=== PATIENT | female | born 1980 | race Asian ===

== ENCOUNTER 2017-01-21 20:25 | Emergency (ER) | payer MEDICAID ==
[~2017-01-21] VITALS: Ht 152.4 cm; Wt 65.0 kg
[2017-01-21] MEDS ORDERED: PROPARACAINE OPHTH 0.5%, 15ML ONE (20:45)
[2017-01-21] MEDS ORDERED: FLUORESCEIN OPHTHALMIC 1 MG STRIP ONE (20:45)
[2017-01-21] MEDS ORDERED: IBUPROFEN 200 MG TABLET ONE (21:18)
[2017-01-21] MEDS ORDERED: IBUPROFEN 200 MG TABLET PO ONE (21:30)
[2017-01-21 21:36] VITALS: BP 115/75
== END 2017-01-21 21:38 | disposition home or self-care (01) ==
LOC: ED 21:15
DX: H10.021 Other mucopurulent conjunctivitis, right eye (principal); E11.9 Type 2 diabetes mellitus without complications
CPT/HCPCS: 99283

== ENCOUNTER 2017-01-24 12:15 | Emergency (ER) | payer MEDICAID ==
[~2017-01-24] VITALS: Ht 152.4 cm; Wt 67.0 kg
[2017-01-24] MEDS ORDERED: KETOROLAC 30 MG/1 ML ONE (12:57)
[2017-01-24] MEDS ORDERED: LORazepam 2 MG/ML, 1ML ONE (12:58)
[2017-01-24] MEDS ORDERED: SODIUM CHLORIDE 0.9% 1,000ML IVBOLUS ONE ×2 (13:00→14:30)
[2017-01-24] MEDS ORDERED: KETOROLAC 30 MG/1 ML IVPush ONE (13:00)
[2017-01-24] MEDS ORDERED: LORazepam 1MG TABLET PO ONE (13:00)
[2017-01-24] MEDS ORDERED: LORazepam 1MG TABLET ONE (13:09)
[2017-01-24 13:22] LABS: BLOOD UREA NITROGEN 9 mg/dL (7-18)
[2017-01-24 13:27] LABS: ASPARTATE AMINO TRANSFERASE 8 U/L (15-37)
[2017-01-24 13:29] LABS: IS PT STATUS REG ER OR PRE ER? YES
[2017-01-24] MEDS ORDERED: BACITRACIN ZINC OINT 500U/GM, 0.9 GM ONE (14:22)
[2017-01-24 14:29] LABS: PH, VENOUS 7.331 pH (7.320-7.420)
[2017-01-24 15:22] VITALS: BP 100/65
== END 2017-01-24 15:46 | disposition home or self-care (01) ==
LOC: ED 12:57
DX: S20.219A Contusion of unspecified front wall of thorax, initial encounter (principal); S40.011A Contusion of right shoulder, initial encounter; I10 Essential (primary) hypertension; E11.9 Type 2 diabetes mellitus without complications; J45.909 Unspecified asthma, uncomplicated; W18.30XA Fall on same level, unspecified, initial encounter; Y93.01 Activity, walking, marching and hiking; Y99.8 Other external cause status; Y92.410 Unspecified street and highway as the place of occurrence of the external cause
CPT/HCPCS: 36415; 71010; 73030; 80053; 81001; 82010; 82803; 82962; 84484; 85025; 87086; 93005; 96361; 96374; 99285; J1885; J7030

== ENCOUNTER 2017-08-05 11:05 | Emergency (ER) | payer MEDICAID ==
[~2017-08-05] VITALS: Ht 149.9 cm; Wt 66.0 kg
[2017-08-05] MEDS ORDERED: SODIUM CHLORIDE 0.9% 1,000 ML IV ONE (11:16)
[2017-08-05] MEDS ORDERED: ACETAMINOPHEN 500 MG TABLET PO ONE (11:30)
[2017-08-05] MEDS ORDERED: SODIUM CHLORIDE FLUSH 10ML SYR IVF ONE (11:30)
[2017-08-05] MEDS ORDERED: SODIUM CHLORIDE 0.9% 1,000ML IVBOLUS ONE (11:30)
[2017-08-05] MEDS ORDERED: ACETAMINOPHEN 500 MG TABLET ONE (11:45)
[2017-08-05 11:46] LABS: RAPID INFLUENZA A POSITIVE (Negative); RAPID INFLUENZA B Negative (Negative)
[2017-08-05 12:04] LABS: BASOPHILS # (AUTO) 0.04 x10^3/uL (0-0.1); BASOPHILS % (AUTO) 1 % (0-1); EOSINOPHILS # (AUTO) 0.08 x10^3/uL (0-0.4); EOSINOPHILS % (AUTO) 1 % (1-7); LYMPHOCYTES # (AUTO) 0.45 x10^3/uL (1-3.4); LYMPHOCYTES % (AUTO) 6 % (22-44); MD NO; MEAN CORPUSCULAR HEMOGLOBIN 30.5 pg (27.0-34.8); MEAN CORPUSCULAR HGB CONC 33.6 g/dL (32.4-35.8); MEAN CORPUSCULAR VOLUME 90.8 fL (80-100); MEAN PLATELET VOLUME 8.8 fL (7.4-10.4); MONOCYTES # (AUTO) 1.03 x10^3/uL (0.2-0.8); MONOCYTES % (AUTO) 14 % (2-9); NEUTROPHILS # (AUTO) 5.96 x10^3/uL (1.8-6.8); NEUTROPHILS % (AUTO) 79 % (42-75); PLATELET COUNT 289 x10^3/uL (130-400); RED BLOOD COUNT 4.42 x10^6/uL (3.82-5.3); RED CELL DISTRIBUTION WIDTH 12.5 % (9.6-15.2)
[2017-08-05 12:14] LABS: ALANINE AMINOTRANSFERASE 14 U/L (12-78); ALBUMIN 2.9 g/dL (3.4-5.0); ANION GAP 10 mmol/L (5-15); CALCIUM 7.8 mg/dL (8.5-10.1); CHLORIDE 107 mmol/L (98-107); CREATININE 0.72 mg/dL (0.55-1.02)
[2017-08-05 12:18] LABS: ALKALINE PHOSPHATASE 64 U/L (45-117); BILIRUBIN,TOTAL 0.2 mg/dL (0.2-1.0); TOTAL PROTEIN 6.4 g/dL (6.4-8.2)
[2017-08-05 12:32] LABS: INTERNATIONAL NORMALIZED RATIO 0.96 (0.93-1.1); PARTIAL THROMBOPLASTIN TIME 27 Seconds (25-31); PROTHROMBIN TIME 9.9 Seconds (9.6-11.5)
[2017-08-05 12:33] LABS: D-DIMER < 0.19 ug/mlFEU (0.00-0.52)
[2017-08-05 14:14] LABS: MICROSCOPIC NOT IND
[2017-08-05 14:25] LABS: CULTURE INDICATED? NO
[2017-08-05 15:00] VITALS: BP 123/66
== END 2017-08-05 15:34 | disposition home or self-care (01) ==
LOC: ED 13:14
DX: J09.X2 Influenza due to identified novel influenza A virus with other respiratory manifestations (principal); I10 Essential (primary) hypertension; E11.9 Type 2 diabetes mellitus without complications; J45.909 Unspecified asthma, uncomplicated; J06.9 Acute upper respiratory infection, unspecified
CPT/HCPCS: 36415; 71020; 80053; 81003; 83605; 83880; 84145; 85025; 85379; 85610; 85730; 87040; 87400; 93005; 96360; 99285; J7030

== ENCOUNTER 2017-11-26 10:13 | Emergency (ER) | payer MEDICAID ==
[~2017-11-26] VITALS: Ht 149.9 cm; Wt 58.0 kg
[2017-11-26] MEDS ORDERED: SODIUM CHLORIDE 0.9% 1,000 ML IV ONE (10:26)
[2017-11-26] MEDS ORDERED: ONDANSETRON 2MG/ML, 2ML IVPush ONE (10:30)
[2017-11-26] MEDS ORDERED: ONDANSETRON ODT 4 MG ONE (10:46)
[2017-11-26 10:51] LABS: BASOPHILS # (AUTO) 0.05 x10^3/uL (0-0.1); BASOPHILS % (AUTO) 1 % (0-1); EOSINOPHILS # (AUTO) 0.32 x10^3/uL (0-0.4); EOSINOPHILS % (AUTO) 4 % (1-7); LYMPHOCYTES # (AUTO) 2.73 x10^3/uL (1-3.4); LYMPHOCYTES % (AUTO) 34 % (22-44); MD NO; MEAN CORPUSCULAR HEMOGLOBIN 30.8 pg (27.0-34.8); MEAN CORPUSCULAR HGB CONC 33.9 g/dL (32.4-35.8); MEAN CORPUSCULAR VOLUME 90.8 fL (80-100); MEAN PLATELET VOLUME 8.6 fL (7.4-10.4); MONOCYTES # (AUTO) 0.71 x10^3/uL (0.2-0.8); MONOCYTES % (AUTO) 9 % (2-9); NEUTROPHILS # (AUTO) 4.35 x10^3/uL (1.8-6.8); NEUTROPHILS % (AUTO) 53 % (42-75); PLATELET COUNT 343 x10^3/uL (130-400); RED BLOOD COUNT 4.57 x10^6/uL (3.82-5.3); RED CELL DISTRIBUTION WIDTH 12.1 % (9.6-15.2)
[2017-11-26 10:58] LABS: ALBUMIN 3.3 g/dL (3.4-5.0); ANION GAP 9 mmol/L (5-15); CHLORIDE 107 mmol/L (98-107)
[2017-11-26] MEDS ORDERED: ONDANSETRON ODT 4 MG PO ONE (11:00)
[2017-11-26 11:04] LABS: ALANINE AMINOTRANSFERASE 18 U/L (12-78); ALKALINE PHOSPHATASE 77 U/L (45-117); BILIRUBIN,TOTAL 0.3 mg/dL (0.2-1.0); FREE T4 (FREE THYROXINE) 1.12 ng/dL (0.76-1.46); TOTAL PROTEIN 7.4 g/dL (6.4-8.2)
[2017-11-26 11:37] LABS: CULTURE INDICATED? YES; MICROSCOPIC INDICATED
[2017-11-26] MEDS ORDERED: LORazepam 1MG TABLET PO ONE (12:00)
[2017-11-26 12:07] VITALS: BP 120/75
[2017-11-26] MEDS ORDERED: LORazepam 1MG TABLET ONE (12:15)
== END 2017-11-26 12:46 | disposition home or self-care (01) ==
LOC: ED 10:51
DX: E11.65 Type 2 diabetes mellitus with hyperglycemia (principal); F41.1 Generalized anxiety disorder; R42 Dizziness and giddiness
CPT/HCPCS: 36415; 71045; 80053; 81001; 84439; 84443; 84703; 85025; 87086; 93005; 96360; 96361; 99285; J7030

== ENCOUNTER 2019-08-28 21:41 | Emergency (ER) | payer MEDICAID ==
[~2019-08-28] VITALS: Ht 149.9 cm; Wt 64.8 kg
[~2019-08-28 21:41] MED LIST: ALBU18HF INH; ASPI-496 PO; AZIT250T PO; BENZ-17 PO; DIAZ5TAB PO; FLUT100B IH; GABA300C10 PO; GLIM4TAB4 PO; LOVA20TA2 PO; METF850T PO; OMEP20TA62 PO; SITA100T PO; SODI44SP NAS
[2019-08-28 21:55] VITALS: BP 146/68
== END 2019-08-28 23:15 | disposition home or self-care (01) ==
LOC: ED 23:00
DX: B34.9 Viral infection, unspecified (principal); J00 Acute nasopharyngitis [common cold]; E11.65 Type 2 diabetes mellitus with hyperglycemia; J45.909 Unspecified asthma, uncomplicated; I10 Essential (primary) hypertension
CPT/HCPCS: 71046; 99283